=== PATIENT | female | born 1960 | race Caucasian/White ===

== ENCOUNTER 2018-06-08 12:06 | Emergency (ER) | payer MEDICAID ==
[~2018-06-08] VITALS: Ht 157.5 cm; Wt 81.1 kg
[2018-06-08 12:08] VITALS: Ht 157.5 cm; Wt 81.1 kg
[2018-06-08] MEDS ORDERED: SOD CHLORIDE 0.9% 1,000 ML IV STA (12:49)
[2018-06-08] MEDS ORDERED: KETOROLAC 30 MG INJ IV STA (12:49)
[2018-06-08] MEDS ORDERED: DIPHENHYDRAMINE 50 MG INJ IV STA (12:49)
[2018-06-08] MEDS ORDERED: METOCLOPRAMIDE 10 MG INJ IV STA (12:49)
[2018-06-08] MEDS ORDERED: FIORICET PO (14:19)
[2018-06-08 14:43] VITALS: BP 132/78; PULSE 88; RESP 18
--- NOTE | 2018-06-08 15:43 | ERD ---
ER Documentation Chief Complaint Chief Complaint HEADACHE X 5 DAYS , NO NEURO DEFICITS HPI 58-year-old female presenting with headache times 5 days. Patient took some medicine this morning that she does not recall the name of with no alleviation symptoms. Denies any visual changes. Denies vomiting or fevers. Denies weakness. Medical history is hypertension. NKDA. Surgical history hysterectomy. Social history denies ROS All systems reviewed and are negative except as per history of present illness. Medications Home Meds Active Scripts Acetamin/Butalbital/Caffeine* (Fioricet*) [id number] Tab, 1 TAB PO Q6H PRN for PAIN, #30 TAB Prov:FRACISCO ALAMO PA-C 06/08/18 Allergies Allergies: Coded Allergies: No Known Allergy (Unverified , 06/08/18) PMhx/Soc Hx Neurological Disorder: No Hx Respiratory Disorders: No Hx Cardiac Disorders: Yes (htn,) Hx Psychiatric Problems: No Hx Alcohol Use: No Hx Substance Use: No Hx Tobacco Use: No FmHx Family History: No diabetes, No coronary disease, No other Physical Exam Vitals Vital Signs Date Temp Pulse Resp B/P (MAP) Pulse Ox O2 O2 Flow FiO2 Time Delivery Rate 06/08/18 97.3 88 18 132/78 99 Room Air 14:43 (96) 06/08/18 97.7 87 18 150/94 97 12:08 (112) Physical Exam GENERAL: The patient is well-appearing, well-nourished, in no acute distress HEENT: Atraumatic. Conjunctivae are pink. Pupils equal, round, and reactive to light. There is no scleral icterus. Tympanic membranes clear bilaterally. Oropharynx clear. CHEST: Clear to auscultation bilaterally. There are no rales, wheezes or rhonchi. HEART: Regular rate and rhythm. No murmurs, clicks, rubs or gallops. No S3 or S4. NEUROLOGIC: Alert and oriented. Cranial nerves II through XII intact. Motor strength in all 4 extremities with 5 out of 5 strength. Sensation grossly intact. Normal speech and gait. Babinski negative. DTR 2+ throughout. SKIN: There is no apparent rash or petechiae. The skin is warm and dry. Results 24 hrs Laboratory Tests Test 06/08/18 13:03 Urine Color YELLOW Urine Clarity CLEAR Urine pH 7.0 Urine Specific [place] 1.020 Urine Ketones TRACE mg/dL Urine Nitrite NEGATIVE mg/dL Urine Bilirubin NEGATIVE mg/dL Urine Urobilinogen NEGATIVE mg/dL Urine Leukocyte Esterase NEGATIVE Isidra/ul Urine Microscopic RBC 4 /HPF Urine Microscopic WBC 0 /HPF Urine Squamous Epithelial Cells FEW /HPF Urine Hemoglobin 1+ mg/dL Urine Glucose NEGATIVE mg/dL Urine Total Protein NEGATIVE mg/dl Current Medications Medications Dose Sig/Buffy Start Time Status Last (Trade) Ordered Route PRN Stop Time Admin Dose Reason Admin Sodium 1,000 ml @ Q1H STAT 06/08/18 DC 06/08/18 Chloride 1,000 mls/hr IV 12:49 13:05 06/08/18 13:48 10 mg ONCE STAT 06/08/18 DC 06/08/18 Metoclopramid IV 12:49 13:04 e HCl 06/08/18 12:50 (Reglan) Ketorolac 30 mg ONCE STAT 06/08/18 DC 06/08/18 Tromethamine IV 12:49 13:05 (Toradol) 06/08/18 12:50 25 mg ONCE STAT 06/08/18 DC 06/08/18 Diphenhydrami IV 12:49 13:04 ne HCl 06/08/18 12:50 (Benadryl) Procedures/MDM DIAGNOSTIC IMAGING REPORT Patient: WICHO BENTON : 1960 Age: 58 Sex: F MR #: [id number] DOS: 06/08/18 1249 Ordering MD: LORAINE ALAMO PA-C Location: [facility] Room/Bed: PROCEDURE: CT Brain without contrast. CLINICAL INDICATION: Headache. Dizziness. TECHNIQUE: A CT of the brain without contrast was performed utilizing axial sections from the skull base through the vertex. One or more the following does reduction techniques were utilized: Automated exposure control, adjustment of the mA/ or kV according to patient's size, or use of iterative reconstruction technique. Total exam CTDIvol is 390.04 MGy and DLP is 634.23 mGy-cm. DICOM images are available. COMPARISON: None available. FINDINGS: The ventricles and sulci are minimally prominent indicative of volume loss. There is no intracranial hemorrhage, mass effect or midline shift. No abnormal intra-axial or extra-axial fluid collections are seen. The cassidy/white matter differentiation is preserved. There are minimal foci of hypoattenuation in the white matter, which are nonspecific in etiology but likely reflect chronic small vessel ischemic changes. There are minimal intracranial vascular calcifications consistent with atherosclerosis. The visualized paranasal sinuses are essentially clear. IMPRESSION: 1. No acute intracranial hemorrhage, transcortical infarction or mass effect. 2. Minimal intracranial atherosclerosis and chronic small vessel ischemic changes. 3. Minimal generalized cerebral volume loss. ER course: 1 L normal saline given ED. Toradol, Benadryl and Zofran given. Patient symptoms improved on reevaluation. MDM 58-year-old female presenting with headache.: I have low suspicion for intracranial hemorrhage or neuro deficit. I have low suspicion for meningitis or sepsis. Patient is discharged stricter precautions and recommended to follow-up with primary care within 1-2 days for close evaluation. Patient is told symptoms change or worsen to return immediately to the ER. All questions answered at discharge Departure Diagnosis: Primary Impression: Headache Condition: Stable Patient Instructions: Self-Care for Headaches Referrals: [facility] YOU HAVE RECEIVED A MEDICAL SCREENING EXAM AND THE RESULTS INDICATE THAT YOU DO NOT HAVE A CONDITION THAT REQUIRES URGENT TREATMENT IN THE EMERGENCY DEPARTMENT. FURTHER EVALUATION AND TREATMENT OF YOUR CONDITION CAN WAIT UNTIL YOU ARE SEEN IN YOUR DOCTORS OFFICE WITHIN THE NEXT 1-2 DAYS. IT IS YOUR RESPONSIBILITY TO MAKE AN APPOINTMENT FOR FOLOW-UP CARE. IF YOU HAVE A PRIMARY DOCTOR --you should call your primary doctor and schedule an appointment IF YOU DO NOT HAVE A PRIMARY DOCTOR YOU CAN CALL OUR PHYSICIAN REFERRAL HOTLINE AT IF YOU CAN NOT AFFORD TO SEE A PHYSICIAN YOU CAN CHOSE FROM THE FOLLOWING [facility] [address] [facility] [facility] [address] [facility] [facility] [address] [facility] [address] [facility]. [facility] [address] [facility]. [facility]. [address] Additional Instructions: FOLLOW UP WITH YOUR PRIMARY CARE PHYSICIAN TOMORROW.Return to this facility if you are not improving as expected. FRACISCO ALAMO PA-C Jun 08, 2018 15:43
== END 2018-06-08 15:14 | disposition home or self-care (01) ==
LOC: FTE 12:06
DX: R51 Headache (principal)
CPT/HCPCS: 70450; 81001; 96361; 96374; 96375; J1200; J1885; J2765; J7030; Z7502

== ENCOUNTER 2018-07-31 07:47 | Emergency (ER) | payer MEDICAID ==
[~2018-07-31] VITALS: Ht 167.6 cm; Wt 81.0 kg
[~2018-07-31 07:47] MED LIST: FIORICET PO
[2018-07-31 07:50] VITALS: Ht 167.6 cm; Wt 81.0 kg
[2018-07-31] MEDS ORDERED: HYDROmorphONE 1 MG/ML SYG IV STA ×2 (08:19→11:47)
[2018-07-31] MEDS ORDERED: ONDANSETRON 4 MG INJ IV STA ×2 (08:19→11:47)
[2018-07-31] MEDS ORDERED: [UNRECOGNIZED DRUG - CODE] PO (09:34)
[2018-07-31] MEDS ORDERED: METF500T24 PO (09:34)
--- NOTE | 2018-07-31 10:42 | ERD ---
ER Documentation Chief Complaint Chief Complaint Complains of flank and abdominal pain x 3 days HPI This is a 58-year-old female who is here for right upper quadrant pain. She is complaining of the onset last night of pain in the right mid abdomen and right upper quadrant and radiates to the right back with nausea but no vomiting or diarrhea no chest pain shortness of breath no hematuria or dysuria. No prior history of gallstones or cholecystectomy ROS All systems reviewed and are negative except as per history of present illness. Medications Home Meds Active Scripts Acetamin/Butalbital/Caffeine* (Fioricet*) [id number] Tab, 1 TAB PO Q6H PRN for PAIN, #30 TAB Prov:FRACISCO ALAMO PA-C 06/08/18 Reported Medications Metformin Hcl* (Metformin Hcl*) 500 Mg Tablet, 500 MG PO WITH BREAKFAST, #30 TAB 07/31/18 Telmisartan (Micardis) 80 Mg Tablet, 80 MG PO DAILY, TAB 07/31/18 Allergies Allergies: Coded Allergies: No Known Allergy (Unverified , 07/31/18) PMhx/Soc Medical and Surgical Hx: pt denies Medical Hx, pt denies Surgical Hx Hx Neurological Disorder: No Hx Respiratory Disorders: No Hx Cardiac Disorders: Yes (htn,) Hx Psychiatric Problems: No Hx Alcohol Use: No Hx Substance Use: No Hx Tobacco Use: No Smoking Status: Never smoker FmHx Family History: No coronary disease Physical Exam Vitals Vital Signs Date Temp Pulse Resp B/P (MAP) Pulse Ox O2 O2 Flow FiO2 Time Delivery Rate 07/31/18 98.0 78 18 151/87 98 Room Air 11:57 (108) 07/31/18 97.6 75 20 159/76 96 07:50 (103) Physical Exam Const: Well-developed, well-nourished Head: Atraumatic, normocephalic Eyes: Normal Conjunctiva, PERRLA, EOMI, normal sclera, no nystagmus ENT: Normal External Ears, Nose and Mouth, moist mucus membranes. Neck: Full range of motion. No meningismus, no lymphadenopathy. Resp: Clear to auscultation bilaterally, no wheezing, rhonchi, rales Cardio: Regular rate and rhythm, no murmurs, S1 S2 present Abd: Soft, tender right mid and right upper quadrant, non distended. Normal bowel sounds, no guarding or rebound, no pulsitile abdominal masses or bruits Skin: No petechiae or rashes, no ecchymosis , no maculopapular rash Back: No midline or flank tenderness Ext: No cyanosis, or edema, FROM x 4, normal inspection, neurovascularly intact x 4 Neur: Awake and alert, STR 5/5 x 4, sensation intact x 4, no focal findings, cerebellum intact Psych: Normal Mood and Affect Result Diagram: 07/31/1822 07/31/1822 Results 24 hrs Laboratory Tests Test 07/31/18 08:22 White Blood Count 6.3 10^3/ul Red Blood Count 4.07 10^6/ul Hemoglobin 13.1 g/dl Hematocrit 39.4 % Mean Corpuscular Volume 96.8 fl Mean Corpuscular Hemoglobin 32.2 pg Mean Corpuscular Hemoglobin Concent 33.2 g/dl Red Cell Distribution Width 12.4 % Platelet Count 261 10^3/UL Mean Platelet Volume 8.5 fl Immature Granulocytes % 0.300 % Neutrophils % 53.2 % Lymphocytes % 35.6 % Monocytes % 5.6 % Eosinophils % 4.8 % Basophils % 0.5 % Nucleated Red Blood Cells % 0.0 /100WBC Immature Granulocytes # 0.020 10^3/ul Neutrophils # 3.4 10^3/ul Lymphocytes # 2.2 10^3/ul Monocytes # 0.4 10^3/ul Eosinophils # 0.3 10^3/ul Basophils # 0.0 10^3/ul Nucleated Red Blood Cells # 0.0 10^3/ul Sodium Level 145 mmol/L Potassium Level 4.1 mmol/L Chloride Level 106 mmol/L Carbon Dioxide Level 25 mmol/L Anion Gap 14 Blood Urea Nitrogen 13 mg/dl Creatinine 0.46 mg/dl Est Glomerular Filtrat Rate mL/min > 60 mL/min Glucose Level 105 mg/dl Calcium Level 9.3 mg/dl Total Bilirubin 0.2 mg/dl Direct Bilirubin 0.00 mg/dl Indirect Bilirubin 0.2 mg/dl Aspartate Amino Transf (AST/SGOT) 28 IU/L Alanine Aminotransferase (ALT/SGPT) 21 IU/L Alkaline Phosphatase 95 IU/L Total Protein 8.1 g/dl Albumin 4.6 g/dl Globulin 3.50 g/dl Albumin/Globulin Ratio 1.31 Lipase 98 U/L Current Medications Medications Dose Sig/Buffy Start Time Status Last (Trade) Ordered Route PRN Stop Time Admin Dose Reason Admin 1 mg ONCE STAT 07/31/18 DC 07/31/18 Hydromorphone IV 08:19 08:35 HCl 07/31/18 08:21 (Dilaudid) Ondansetron 4 mg ONCE STAT 07/31/18 DC 07/31/18 HCl (Zofran IV 08:19 08:35 Inj) 07/31/18 08:21 IV Flush 10 ml STK-MED 07/31/18 DC 07/31/18 (NS 10 ml) ONCE .ROUTE 11:32 11:49 07/31/18 11:33 Sodium 100 ml @ ud STK-MED 07/31/18 DC 07/31/18 Chloride ONCE .ROUTE 11:32 11:50 07/31/18 11:33 Iohexol 150 ml STK-MED 07/31/18 DC 07/31/18 (Omnipaque ONCE .ROUTE 11:32 11:50 300mg/ ml) 07/31/18 11:33 1 mg ONCE STAT 07/31/18 DC 07/31/18 Hydromorphone IV 11:47 11:56 HCl 07/31/18 11:48 (Dilaudid) Ondansetron 4 mg ONCE STAT 07/31/18 DC 07/31/18 HCl (Zofran IV 11:47 11:56 Inj) 07/31/18 11:48 Procedures/MDM Ordering MD: CAMRYN JOHN DO Location: E/R Room/Bed: PROCEDURE: US Abdomen Right Upper Quadrant. CLINICAL INDICATION: Abdominal pain TECHNIQUE: Multiple real-time longitudinal and transverse images were acquired of the patient's right upper quadrant abdomen utilizing a curved array transducer. COMPARISON: None FINDINGS: Liver: The liver is enlarged with the sagittal diameter of the right lobe measuring 18.5 cm. The hepatic echotexture is mildly diffusely increased. There is normal directional flow of the main portal vein. Gallbladder: Appears unremarkable and no stones are identified. There is no pericholecystic fluid. Bile ducts: There is no significant intra or extrahepatic bile duct dilatation. The common bile duct measures 5.7 mm in cross diameter. No choledocholiths are seen within the visualized portions of the duct. Pancreas: The visualized head and body of the pancreas appear unremarkable with no mass or inflammation evident. Right kidney: Normal in echotexture and in size. The right kidney measures 10.7 cm in length. No mass, pathological calcification, or hydronephrosis is evident. Peritoneum: There is no free intraperitoneal fluid IMPRESSION: 1. The liver is mildly enlarged and diffusely echogenic compatible with diffuse fatty infiltration. No focal lesion is evident and there is normal directional flow of the main portal vein. 2. Otherwise, unremarkable right upper quadrant abdominal sonogram. Physician Quan Date Time Electronically viewed and signed by Physician Quan on 07/31/2018 09:27 RH/ CC: CAMRYN JOHN DO [id number] PROCEDURE: CT ABDOMEN AND PELVIS WITH IV CONTRAST. CLINICAL INDICATION: Abdominal pain TECHNIQUE: CT scan of the abdomen and pelvis with contrast was performed on a multidetector high-resolution CT scanner following the use of IV contrast. 100 cc Omnipaque-300 was administered. Coronal and sagittal reformatted images were obtained from the axial source images. Images were reviewed on a high-resolution PACS workstation. The total exam CTDI equals 18.5 mGy and the total exam DLP equals 1043.8 mGy-cm. One or more of the following dose reduction techniques were used: Automated exposure control. Adjustment of the mA and/or kV according to patient size. Use of iterative reconstruction technique. DICOM images are available. COMPARISON: None FINDINGS: CT abdomen: The lung bases are clear. The heart size is within normal limits. There is no significant pericardial effusion. Hepatic morphology is within normal limits. No gross contour deforming masses. The gallbladder is within normal limits. No evidence of intrahepatic or extrahepatic biliary dilatation. The spleen and pancreas are within normal limits. Both adrenal glands are within normal limits. Both kidneys are in normal anatomic position. No evidence of obstruction or hydronephrosis. No gross renal/ureteric calculi. The visualized GI tract demonstrate normal caliber loops of small and large bowel. No evidence of bowel obstruction. Stool filled loops of large bowel suggestive of constipation. There is a small hiatal hernia. Colonic diverticulosis noted. The appendix is not visualized, however no inflammatory changes within the right lower quadrant. The aorta is within limits. There is no significant retroperitoneal lymphadenop athy. CT pelvis: The bladder is distended. The uterus is not visualized. Stool noted within the rectosigmoid colon. No significant free fluid. No pelvic lymphadenopathy. The visualized osseous structures demonstrates degenerate changes of the spine. IMPRESSION: 1. No evidence of acute intra-abdominal/pelvic inflammatory process. No evidence of bowel obstruction. Stool filled loops of large bowel suggestive of constipation. The appendix is not clearly identified, however no inflammatory changes within the right lower quadrant. 2. Small hiatal hernia. 3. No gross renal/ureteric calculi. No evidence of obstructive uropathy. 4. No evidence of free fluid or free air. No gross focal fluid collections. 5. Status post hysterectomy. RPTAT: AAPP Physician Jono Date Time Electronically viewed and signed by Physician Jono on 07/31/2018 11:50 JL/ CC: CAMRYN JOHN DO [phone] Patient has no acute abnormality on CT scan or on ultrasound. The patient clinically showing signs of biliary colic. We will treat for this and advised h er needs to get a HIDA scan to evaluate for gallbladder dysfunction. Of discharge home with Bentyl and Roark Departure Diagnosis: Primary Impression: Abdominal pain Abdominal location: right upper quadrant Qualified Codes: R10.11 - Right upper quadrant pain Condition: Stable CAMRYN JOHN DO Jul 31, 2018 10:42
[2018-07-31] MEDS ORDERED: IOHEXOL 300MG/ML 150 ML BTL ONE (11:32)
[2018-07-31] MEDS ORDERED: SOD CHLORIDE 0.9% 100 ML ONE (11:32)
[2018-07-31 11:57] VITALS: BP 151/87; PULSE 78; RESP 18
[2018-07-31] MEDS ORDERED: HYDR-4011 PO (12:00)
[2018-07-31] MEDS ORDERED: DICY10CA40 PO (12:00)
== END 2018-07-31 12:21 | disposition home or self-care (01) ==
LOC: E/R 07:47
DX: R10.11 Right upper quadrant pain (principal); I10 Essential (primary) hypertension
CPT/HCPCS: 36415; 74177; 76705; 80053; 83690; 85025; 96374; 96375; 96376; J1170; J2405; Q9967; Z7502; Z7610

== ENCOUNTER 2018-07-31 21:35 | Emergency (ER) | payer MEDICAID ==
[~2018-07-31] VITALS: Wt 80.4 kg
[~2018-07-31 21:35] MED LIST changes: +DICY10CA40 PO; +HYDR-4011 PO; +METF500T24 PO; +[UNRECOGNIZED DRUG - CODE] PO
[2018-07-31] MEDS ORDERED: morphine 4 MG/ML VIAL IV STA (23:15)
[2018-07-31] MEDS ORDERED: SOD CHLORIDE 0.9% 500 ML IV STA (23:15)
[2018-07-31] MEDS ORDERED: ONDANSETRON 4 MG INJ IV STA (23:15)
[2018-08-01] MEDS ORDERED: morphine 4 MG/ML VIAL IV STA (03:50)
[2018-08-01] MEDS ORDERED: ONDANSETRON 4 MG INJ IV STA (03:50)
--- NOTE | 2018-08-01 04:24 | ERD ---
ER Documentation Chief Complaint Chief Complaint abdominal pain since yesterday HPI This is a 58-year-old female with abdominal pain since yesterday. She is seen earlier today. Pain is mild to moderate in intensity but had resolved prior to discharge. She now comes back of reactivation of pain that starts in the flank and radiates to her epigastric region. She denies any fevers or chills. Denies any vomiting but does complain of some mild nausea. Denies any other current complaints. ROS All systems reviewed and are negative except as per history of present illness. Medications Home Meds Reported Medications Metformin Hcl* (Metformin Hcl*) 500 Mg Tablet, 500 MG PO WITH BREAKFAST, #30 TAB 07/31/18 Telmisartan (Micardis) 80 Mg Tablet, 80 MG PO DAILY, TAB 07/31/18 Discontinued Scripts Hydrocodone/Acetaminophen ([place] 5-325 Tablet) 1 Each Tablet, 1 TAB PO Q6H PRN for PAIN, #15 TAB Prov:CAMRYN JOHN DO 07/31/18 Dicyclomine HCl (Dicyclomine HCl) 10 Mg Capsule, 20 MG PO TID PRN for ABDOMINAL CRAMPING, #20 CAP Prov:LESTACEYOSAMISHASTOLOS A. DO 07/31/18 Acetamin/Butalbital/Caffeine* (Fioricet*) [id number] Tab, 1 TAB PO Q6H PRN for PAIN, #30 TAB Prov:FRACISCO ALAMO PA-C 06/08/18 Allergies Allergies: Coded Allergies: No Known Allergy (Unverified , 07/31/18) PMhx/Soc Hx Neurological Disorder: No Hx Respiratory Disorders: No Hx Cardiac Disorders: Yes (htn,) Hx Psychiatric Problems: No Hx Alcohol Use: No Hx Substance Use: No Hx Tobacco Use: No Smoking Status: Never smoker Physical Exam Vitals Vital Signs Date Temp Pulse Resp B/P (MAP) Pulse Ox O2 O2 Flow FiO2 Time Delivery Rate 07/31/18 80 18 142/85 96 Room Air 23:30 (104) 07/31/18 98.2 84 18 147/85 97 21:39 (105) Physical Exam Const: No acute distress Head: Atraumatic Eyes: Normal Conjunctiva ENT: Normal External Ears, Nose and Mouth. Neck: Full range of motion. No meningismus. Resp: Clear to auscultation bilaterally Cardio: Regular rate and rhythm, no murmurs Abd: Soft, non tender, non distended. Normal bowel sounds Skin: No petechiae or rashes Back: No midline or flank tenderness Ext: No cyanosis, or edema Neur: Awake and alert Psych: Normal Mood and Affect Result Diagram: 07/31/18 2343 07/31/18 2343 Results 24 hrs Laboratory Tests Test 07/31/18 23:43 White Blood Count 7.4 10^3/ul Red Blood Count 3.96 10^6/ul Hemoglobin 12.8 g/dl Hematocrit 37.9 % Mean Corpuscular Volume 95.7 fl Mean Corpuscular Hemoglobin 32.3 pg Mean Corpuscular Hemoglobin Concent 33.8 g/dl Red Cell Distribution Width 12.6 % Platelet Count 264 10^3/UL Mean Platelet Volume 8.4 fl Immature Granulocytes % 0.400 % Neutrophils % 57.0 % Lymphocytes % 31.9 % Monocytes % 7.2 % Eosinophils % 3.0 % Basophils % 0.5 % Nucleated Red Blood Cells % 0.0 /100WBC Immature Granulocytes # 0.030 10^3/ul Neutrophils # 4.2 10^3/ul Lymphocytes # 2.4 10^3/ul Monocytes # 0.5 10^3/ul Eosinophils # 0.2 10^3/ul Basophils # 0.0 10^3/ul Nucleated Red Blood Cells # 0.0 10^3/ul Urine Color YELLOW Urine Clarity CLEAR Urine pH 5.0 Urine Specific [place] 1.018 Urine Ketones NEGATIVE mg/dL Urine Nitrite NEGATIVE mg/dL Urine Bilirubin NEGATIVE mg/dL Urine Urobilinogen NEGATIVE mg/dL Urine Leukocyte Esterase NEGATIVE Isidra/ul Urine Microscopic RBC 2 /HPF Urine Microscopic WBC 1 /HPF Urine Squamous Epithelial Cells FEW /HPF Urine Mucus FEW /HPF Urine Hemoglobin 2+ mg/dL Urine Glucose NEGATIVE mg/dL Urine Total Protein NEGATIVE mg/dl Sodium Level 143 mmol/L Potassium Level 3.9 mmol/L Chloride Level 104 mmol/L Carbon Dioxide Level 25 mmol/L Anion Gap 14 Blood Urea Nitrogen 11 mg/dl Creatinine 0.51 mg/dl Est Glomerular Filtrat Rate mL/min > 60 mL/min Glucose Level 129 mg/dl Calcium Level 9.7 mg/dl Total Bilirubin 0.1 mg/dl Direct Bilirubin 0.00 mg/dl Indirect Bilirubin 0.1 mg/dl Aspartate Amino Transf (AST/SGOT) 21 IU/L Alanine Aminotransferase (ALT/SGPT) 21 IU/L Alkaline Phosphatase 97 IU/L Total Protein 7.7 g/dl Albumin 4.4 g/dl Globulin 3.30 g/dl Albumin/Globulin Ratio 1.33 Lipase 184 U/L Current Medications Medications Dose Sig/Buffy Start Time Status Last (Trade) Ordered Route PRN Stop Time Admin Dose Reason Admin Sodium 500 ml @ Q1H STAT 07/31/18 DC 08/01/18 Chloride 500 mls/hr IV 23:15 00:16 08/01/18 00:14 Morphine 4 mg ONCE STAT 07/31/18 DC 08/01/18 Sulfate IV 23:15 00:09 (morphine) 07/31/18 23:17 Ondansetron 4 mg ONCE STAT 07/31/18 DC 08/01/18 HCl (Zofran IV 23:15 00:09 Inj) 07/31/18 23:17 Morphine 4 mg ONCE STAT 08/01/18 DC 08/01/18 Sulfate IV 03:50 04:10 (morphine) 08/01/18 03:51 Ondansetron 4 mg ONCE STAT 08/01/18 DC 08/01/18 HCl (Zofran IV 03:50 04:10 Inj) 08/01/18 03:51 Procedures/MDM Emergency department course: Patient seen and evaluated triage nurse. Placed in bed from evaluation. Had blood work done. Given pain medication. Given normal saline fluid bolus. Medical decision making: Patient's gastrointestinal symptoms have stabilized w hile in the department. No evidence of severe dehydration, sepsis, or surgical abdomen. Extensive discussion with family and patient that occult disease cannot be ruled out. 8 hour recheck for repeat abdominal exam is planned. Departure Diagnosis: Primary Impression: Abdominal pain Abdominal location: unspecified location Qualified Codes: R10.9 - Unspecified abdominal pain Condition: Stable STACEY VILLARREAL Aug 01, 2018 04:24
[2018-08-01 04:40] VITALS: BP 130/75; PULSE 81; RESP 18
== END 2018-08-01 04:50 | disposition home or self-care (01) ==
LOC: E/R 21:35
DX: R10.9 Unspecified abdominal pain (principal); I10 Essential (primary) hypertension
CPT/HCPCS: 36415; 74176; 80053; 81001; 83690; 85025; 96374; 96375; 96376; J2270; J2405; J7040; Z7502

== ENCOUNTER 2018-08-08 08:11 | Emergency (ER) | payer MEDICAID ==
[~2018-08-08] VITALS: Wt 78.7 kg
[~2018-08-08 08:11] MED LIST changes: -DICY10CA40 PO; -FIORICET PO; -HYDR-4011 PO
[2018-08-08] MEDS ORDERED: ONDANSETRON (ODT) 4 MG TAB ODT STA (08:25)
[2018-08-08] MEDS ORDERED: IBUP-1542 PO (08:26)
[2018-08-08] MEDS ORDERED: ACYC800T5 PO (08:26)
[2018-08-08] MEDS ORDERED: HYDROCODONE/APAP (10/325) TAB PO ONE (08:30)
[2018-08-08] MEDS ORDERED: [UNRECOGNIZED DRUG - CODE] PO (09:24)
[2018-08-08 09:28] VITALS: BP 131/65; PULSE 72; RESP 18
--- NOTE | 2018-08-08 12:21 | ERD ---
ER Documentation Chief Complaint Chief Complaint erd visit w same flank/abd pain HPI Patient is a 58-year-old female who presents with right-sided flank pain. She has had right-sided flank pain for the past 2 weeks. She has no rash yet. She has no fevers. She did get seen recently in the emergency department and had a full workup including labs, CT scan of the abdomen pelvis, and ultrasound of the gallbladder which were all basically negative. ROS All systems reviewed and are negative except as per history of present illness. Medications Home Meds Active Scripts Telmisartan (Micardis) 80 Mg Tablet, 80 MG PO DAILY, #30 TAB Prov:EULALIA URRUTIA MD 08/08/18 Acyclovir* (Zovirax*) 800 Mg Tablet, 800 MG PO 5 TIMES DAILY for 7 Days, TAB Prov:EULALIA URRUTIA MD 08/08/18 Ibuprofen* (Motrin*) 600 Mg Tab, 600 MG PO Q6H PRN for PAIN AND OR ELEVATED TEMP, #30 TAB Prov:EULALIA URRUTIA MD 08/08/18 Reported Medications Metformin Hcl* (Metformin Hcl*) 500 Mg Tablet, 500 MG PO WITH BREAKFAST, #30 TAB 07/31/18 Telmisartan (Micardis) 80 Mg Tablet, 80 MG PO DAILY, TAB 07/31/18 Discontinued Scripts Hydrocodone/Acetaminophen ([place] 5-325 Tablet) 1 Each Tablet, 1 TAB PO Q6H PRN for PAIN, #15 TAB Prov:CAMRYN JOHN DO 07/31/18 Dicyclomine HCl (Dicyclomine HCl) 10 Mg Capsule, 20 MG PO TID PRN for ABDOMINAL CRAMPING, #20 CAP Prov:LESTACEYOSAMISHASTOLOS A. DO 07/31/18 Acetamin/Butalbital/Caffeine* (Fioricet*) [id number] Tab, 1 TAB PO Q6H PRN for PAIN, #30 TAB Prov:FRACISCO ALAMO PA-C 06/08/18 Allergies Allergies: Coded Allergies: No Known Allergy (Unverified , 08/08/18) PMhx/Soc Hx Neurological Disorder: No Hx Respiratory Disorders: No Hx Cardiac Disorders: Yes (htn,) Hx Psychiatric Problems: No Hx Alcohol Use: No Hx Substance Use: No Hx Tobacco Use: No Smoking Status: Never smoker FmHx Family History: No diabetes Physical Exam Vitals Vital Signs Date Temp Pulse Resp B/P (MAP) Pulse Ox O2 O2 Flow FiO2 Time Delivery Rate 08/08/18 98.4 72 18 131/65 100 Room Air 09:28 (87) 08/08/18 98.1 77 18 144/72 99 08:14 (96) Physical Exam Const: No acute distress Head: Atraumatic Eyes: Normal Conjunctiva ENT: Normal External Ears, Nose and Mouth. Neck: Full range of motion. No meningismus. Resp: Clear to auscultation bilaterally Cardio: Regular rate and rhythm, no murmurs Abd: Soft, non tender, non distended. Normal bowel sounds Skin: Tenderness to the skin along a dermatomal distribution of the right abdomen and flank Back: No midline or flank tenderness Ext: No cyanosis, or edema Neur: Awake and alert Psych: Normal Mood and Affect Results 24 hrs Current Medications Medications Dose Sig/Buffy Start Time Status Last (Trade) Ordered Route PRN Stop Time Admin Dose Reason Admin 1 tab ONCE ONCE 08/08/18 DC 08/08/18 Acetaminophen PO 08:30 08:35 / 08/08/18 08:31 Hydrocodone Bitart ([place] (10/325)) Ondansetron 4 mg ONCE STAT 08/08/18 DC 08/08/18 HCl (Zofran ODT 08:25 08:35 Odt) 08/08/18 08:26 Procedures/MDM Patient is a 58-year-old female who presents with pain of the skin over a dermatomal distribution. I believe this is likely early shingles and the patient will be prescribed acyclovir and ibuprofen. The patient will need to follow-up closely with her primary doctor for reevaluation within 1 week. She can return for any worsening symptoms. At this point I doubt appendicitis, cholecystitis, pancreatitis, or bowel obstruction. The patient has had a recent full workup including labs, CT scan of the abdomen and pelvis, and ultrasound of the gallbladder. Departure Diagnosis: Primary Impression: Shingles Herpes zoster complications: without complications Qualified Codes: B02.9 - Zoster without complications Additional Impression: Flank pain Condition: Fair Patient Instructions: Shingles (Herpes Zoster), Flank Pain, Uncertain Cause Referrals: Your doctor Additional Instructions: Gavin tabares doctor tiffanie palacios (Referral Sources) MAANA y jeanmarie michelle YAAKOV PARA DENTRO DE MICHELLE SEMANA. Dgale a la secretaria que nosotros le instruimos hacer esta yaakov.Avise o llame si grove condicin se empeora antes de la yaakov. EULALIA URRUTIA MD Aug 08, 2018 12:20
== END 2018-08-08 09:30 | disposition home or self-care (01) ==
LOC: E/R 08:11
DX: B02.9 Zoster without complications (principal); I10 Essential (primary) hypertension
CPT/HCPCS: Z7502; Z7610; 99283